=== PATIENT | male | born 1955 | race African-American/Black ===

== ENCOUNTER 2023-02-07 13:19 | Emergency (ER) | payer OTHER ==
[~2023-02-07] VITALS: Ht 188 cm; Wt 81.7 kg
[2023-02-07 13:34] VITALS: BP 135/80
== END 2023-02-07 15:18 | disposition home or self-care (01) ==
LOC: ER 13:19
DX: M79.675 Pain in left toe(s) (principal); I10 Essential (primary) hypertension; F17.210 Nicotine dependence, cigarettes, uncomplicated
CPT/HCPCS: 73630; 99283-25; A9270